=== PATIENT | female | born 1965 | race Hispanic/Latino ===

== ENCOUNTER 2018-06-06 08:10 | Inpatient (IN) | payer BC ==
--- NOTE | 2018-06-06 08:19 | ED PDOC ---
Arrival/HPI - General Chief Complaint: Shortness Of Breath Time Seen by Provider: 06/06/18 08:10 Historian: Patient - History of Present Illness Narrative History of Present Illness (Text): 06/06/18 08:14 Yokasta Ibarra is a 52 year old female, whose past medical history includes COPD, emphysema, asthma, and osteoporosis, who presents to the Emergency department brought in by EMS complaining of shortness of breath. Patient reports she has been experiencing progressively worsening shortness of breath over the past 3 days. Patient reports associated productive cough with yellow-greenish sputum. Patient received 1 nebulizer treatment and Solu-medrol en route to the hospital. Patient denies any fever, chills, chest pain, nausea, vomiting, diarrhea, urinary symptoms, back pain, neck pain, headache, dizziness, or any other complaints. PMD: Dr. Saenz Time/Duration: < week (3) Symptom Onset: Gradual Symptom Course: Unchanged Activities at Onset: Light Context: Home Past Medical History - Provider Review Nursing Documentation Reviewed: Yes - Infectious Disease Hx of Infectious Diseases: None - Tetanus Immunization Tetanus Immunization: Unknown - Past Medical History Past Medical History: No Previous - Pulmonary Hx Asthma: Yes Hx Chronic Obstructive Pulmonary Disease (COPD): Yes - Endocrine/Metabolic Hx Hypothyroidism: Yes - Psychiatric Hx Depression: No Hx Emotional Abuse: No Hx Physical Abuse: No Hx Substance Use: No - Past Surgical History Past Surgical History: No Previous - Suicidal Assessment Feels Threatened In Home Enviroment: No Family/Social History - Physician Review Nursing Documentation Reviewed: Yes Family/Social History: Unknown Family HX Smoking Status: Former Smoker Hx Alcohol Use: No Hx Substance Use: No Hx Substance Use Treatment: No Allergies/Home Meds Allergies/Adverse Reactions: Allergies No Known Allergies Allergy (Verified 06/06/18 08:12) Home Medications: Home Meds Medication Instructions Recorded Confirmed Ibandronate Sodium [Boniva] 150 mg PO MON 06/06/18 06/06/18 RX: Albuterol HFA [Ventolin HFA 90 2 puff NEB Q4 PRN 06/06/18 06/06/18 mcg/actuation (8 g)] RX: Levothyroxine [Synthroid] 50 mcg PO DAILY 06/06/18 06/06/18 Tiotropium [Spiriva] 1 cap NEB DAILY 06/06/18 06/06/18 Review of Systems - Physician Review All systems were reviewed & negative as marked: Yes - Review of Systems Constitutional: Normal. absent: Fevers Eyes: Normal ENT: Normal Respiratory: SOB, Cough, Sputum Gastrointestinal: Normal. absent: Abdominal Pain, Diarrhea, Nausea, Vomiting Genitourinary Female: Normal. absent: Dysuria, Frequency, Hematuria, Urine Output Changes Musculoskeletal: Normal. absent: Back Pain, Neck Pain Skin: Normal. absent: Rash Neurological: Normal. absent: Headache, Dizziness Endocrine: Normal Hemo/Lymphatic: Normal Psychiatric: Normal Physical Exam Vital Signs Reviewed: Yes Temperature: Afebrile Blood Pressure: Normal Pulse: Regular Respiratory Rate: Normal Appearance: Positive for: Well-Appearing, Non-Toxic, Comfortable Pain Distress: None Mental Status: Positive for: Alert and Oriented X 3 - Systems Exam Head: Present: Atraumatic, Normocephalic Pupils: Present: PERRL Extroacular Muscles: Present: EOMI Conjunctiva: Present: Normal Mouth: Present: Moist Mucous Membranes Neck: Present: Normal Range of Motion Respiratory/Chest: Present: Wheezes (Diffuse wheezing), Rhonchi. No: Respira tory Distress, Accessory Muscle Use Cardiovascular: Present: Regular Rate and Rhythm, Normal S1, S2. No: Murmurs Abdomen: No: Tenderness, Distention, Peritoneal Signs Back: Present: Normal Inspection Upper Extremity: Present: Normal Inspection. No: Cyanosis, Edema Lower Extremity: Present: Normal Inspection. No: Edema Neurological: Present: GCS=15, CN II-XII Intact, Speech Normal Skin: Present: Warm, Dry, Normal Color. No: Rashes Psychiatric: Present: Alert, Oriented x 3, Normal Insight, Normal Concentration Medical Decision Making ED Course and Treatment: 06/06/18 08:14 Impression: 52 year old female complaining of shortness of breath and productive cough x3 days. Plan: -- EKG -- Chest X-ray -- Labs, cardiac enzymes, BNP, VBG -- Urinalysis -- Solu-medrol -- Duoneb -- Reassess and disposition Progress Notes: Reviewed EKG, sinus tachycardia at 126 bpm[address] Non-specific ST/T wave changes. No prior EKG for comparison. 06/06/18 09:27 Chest X-ray reviewed, shows no acute processes. 06/06/18 09:[address] Hawthorne, hospitalist, who is aware and agrees with plan. Accepts pt in to hospitalist service. Pt admitted to Telemetry for COPD. 06/06/18 09:34 Case discussed with manager medical personal security specialist, who is aware and agrees with plan. 06/06/18 10:40 peresistent wheezing, additioanl nebs dosed. accpeted hospitals[facility]. - Lab Interpretations I have reviewed the lab results: Yes - RAD Interpretation Magnetic Locater: ED Physician - EKG Interpretation Interpreted by ED Physician: Yes Type: 12 lead EKG Comparison: No previous EKG avail. - Scribe Statement The provider has reviewed the documentation as recorded by the Radhika Flores Provider Scribe Attestation: All medical record entries made by the Scribe were at my direction and personally dictated by me. I have reviewed the chart and agree that the record accurately reflects my personal performance of the history, physical exam, medical decision making, and the department course for this patient. I have also personally directed, reviewed, and agree with the discharge instructions and disposition. Disposition/Present on Arrival - Present on Arrival Any Indicators Present on Arrival: No History of DVT/PE: No History of Uncontrolled Diabetes: No Urinary Catheter: No History of Decub. Ulcer: No History Surgical Site Infection Following: None - Disposition Have Diagnosis and Disposition been Completed?: Yes Diagnosis: COPD (chronic obstructive pulmonary disease) Disposition: HOSPITALIZED Disposition Time: 09:50 Condition: FAIR
[2018-06-06] MEDS: Albuterol-Ipratrop 3 mg / 0.5 (3 ml) UD IH SCH ×3 (08:30→08:46)
[2018-06-06 08:52] LABS: VENOUS BLOOD GAS BASE EXCESS -1.7 mmol/L (0.0-2.0); VENOUS BLOOD GAS PO2 74 mm/Hg (30-55); VENOUS BLOOD PH 7.27 (7.32-7.43)
[2018-06-06 08:54] LABS: BASO # 0.04 K/mm3 (0.0-2.0); BASO % 0.9 % (0.0-3.0); EOS # 0.4 (0.0-0.7); EOS % 10.1 % (1.5-5.0); GRAN # 2.03 (1.4-6.5); GRAN % 47.7 % (50.0-68.0); HEMOGLOBIN 13.7 g/dL (12.0-16.0); LYMPH # 1.5 (1.2-3.4); LYMPH % 34.7 % (22.0-35.0); MEAN CELL VOLUME 85.2 fl (80.0-105.0); MEAN CORPUSCULAR HEMOGLOBIN 27.8 pg (25.0-35.0); MEAN CORPUSCULAR HGB CONC 32.6 g/dl (31.0-37.0); MEAN PLATELET VOLUME 9.3 fl (7.0-11.0); MONO # 0.3 (0.1-0.6); MONO % 6.6 % (1.0-6.0); RBC 4.93 10^6/uL (3.5-6.1); WHITE BLOOD COUNT 4.3 10^3/uL (4.5-11.0)
[2018-06-06 09:00] LABS: INR 0.97; PARTIAL THROMBOPLASTIN TIME 33.6 Seconds (25.1-36.5); PROTHROMBIN TIME 11.1 SECONDS (9.4-12.5)
[2018-06-06 09:04] LABS: ALB/GLOB RATIO 1.4 (1.1-1.8); ALT/SGPT 30 U/L (7-56); AST/SGOT 40 U/L (14-36); BLOOD UREA NITROGEN 6 mg/dL (7-21); CALCIUM 8.9 mg/dL (8.4-10.5); GFR NON-AFRICAN AMERICAN > 60
[2018-06-06 09:16] LABS: B-TYPE NATRIURETIC PEPTIDE 47.8 pg/mL (0-450); TROPONIN I 0.03 ng/mL
[2018-06-06] MEDS ORDERED: Albuterol-Ipratrop 3 mg / 0.5 (3 ml) UD IH STA (09:29)
[2018-06-06 09:42] LABS: URINE BILIRUBIN NEGATIVE (NEGATIVE); URINE BLOOD NEGATIVE (NEGATIVE); URINE GLUCOSE (UA) NEGATIVE (NEGATIVE); URINE LEUKOCYTE ESTERASE NEGATIVE Leu/uL (NEGATIVE); URINE PROTEIN 100 mg/dL (<30 mg/dL); URINE UROBILINOGEN 0.2 E.U./dL (<1 E.U./dL)
[2018-06-06 09:44] LABS: URINE COLOR YELLOW (YELLOW)
[2018-06-06 09:46] LABS: HCG,QUALITATIVE URINE NEGATIVE (NEGATIVE)
[2018-06-06 09:47] LABS: URINE APPEARANCE SLIGHT-CLOUDY (CLEAR)
[2018-06-06] MEDS ORDERED: Albuterol-Ipratrop 3 mg / 0.5 (3 ml) UD IH PRN (10:00)
--- NOTE | 2018-06-06 10:03 | RAD ---
Date of service: 06/06/2018 HISTORY: sob COMPARISON: No prior. FINDINGS: LUNGS: No active pulmonary disease. PLEURA: No significant pleural effusion identified, no pneumothorax apparent. CARDIOVASCULAR: No aortic atherosclerotic calcification present. Normal cardiac size. No pulmonary vascular congestion. OSSEOUS STRUCTURES: No significant abnormalities. VISUALIZED UPPER ABDOMEN: Normal. OTHER FINDINGS: None. IMPRESSION: No active disease.
[2018-06-06] MEDS ORDERED: Levalbuterol 0.63 MG/3 ML Inhal Soln UD IH PRN (10:32)
[2018-06-06] MEDS ORDERED: guaiFENesin 100 mg/5 ml Syrup UD PO PRN (10:43)
[2018-06-06] MEDS ORDERED: Menthol/Phenol (Cepastat) Lozenge MT PRN (10:43)
[2018-06-06] MEDS: Levothyroxine 50 MCG TAB PO SCH (11:14)
[2018-06-06] MEDS: Azithromycin 500MG/NS 250ml 500 MG/250 ML BAG IVPB SCH (11:14)
[2018-06-06 11:16] VITALS: BMI 32.0
[2018-06-06] MEDS: Levalbuterol 1.25 MG/3 ML Inhal Soln UD IH SCH ×2 (13:36→19:40)
[2018-06-06] MEDS ORDERED: Albuterol-Ipratrop 3 mg / 0.5 (3 ml) UD IH SCH (14:00)
--- NOTE | 2018-06-06 14:17 | CP.PCM.HP ---
<NelsonebonyyuryIke arcos - Last Filed: 06/06/18 14:11> History of Present Illness - History of Present Illness History of Present Illness: 52 year old female with past medical history of COPD, Emphysema, Osteoporosis, and Hypothyroidism presents to the hospital for 2 days of shortness of breath. Patient states she was switching from her Spiriva inhaler to Trelegy days ago, but did not want to start the other inhaler right away. During this time, patient developed worsening dyspnea, along with productive cough. Patient admits to minimal mucous production, although she feels it in her lungs. Patient used proair inhaler for her for her symptoms but it did not help. Patient states she is compliant with medications. Patient last saw her PMD and die sinking machine operator 2 months ago. Denies chest pain, nausea, vomiting, diarrhea, fever, chills, dysuria, numbness, tingling. Medical Hx: COPD, Emphysema, Osteoporosis, and Hypothyroidism Surgical Hx: Denies Family Hx: Denies Social Hx: Former smoker, quit 2 years ago, 40 pack years. Denies alcohol or illicit drug use Allergies: NKDA Medications: Spiriva, Trelegy, Proair, Levothyroxine PMD: Dr. Montiel Puljesse: Dr. Sheppard Present on Admission - Present on Admission Any Indicators Present on Admission: No Review of Systems - Review of Systems Review of Systems: 12 point ROS as per HPI, otherwise negative Past Patient History - Infectious Disease Hx of Infectious Diseases: None - Tetanus Immunizations Tetanus Immunization: Unknown - Past Social History Smoking Status: Former Smoker - CARDIAC Hx Cardiac Disorders: No - PULMONARY Hx Respiratory Disorders: Yes Hx Asthma: Yes Hx Chronic Obstructive Pulmonary Disease (COPD): Yes Hx Emphysema: Yes - NEUROLOGICAL Hx Neurological Disorder: No - HEENT Hx HEENT Problems: No - RENAL Hx Chronic Kidney Disease: No - ENDOCRINE/METABOLIC Hx Endocrine Disorders: Yes Hx Hypothyroidism: Yes - HEMATOLOGICAL/ONCOLOGICAL Hx Blood Disorders: No - INTEGUMENTARY Hx Dermatological Problems: No - MUSCULOSKELETAL/RHEUMATOLOGICAL Hx Musculoskeletal Disorders: No Hx Falls: No - GASTROINTESTINAL Hx Gastrointestinal Disorders: No - GENITOURINARY/GYNECOLOGICAL Hx Genitourinary Disorders: No - PSYCHIATRIC Hx Psychophysiologic Disorder: No - SURGICAL HISTORY Hx Surgeries: No Meds Allergies/Adverse Reactions: Allergies Allergy/AdvReac Type Severity Reaction Status Date / Time No Known Allergies Allergy Verified 06/06/18 08:12 Physical Exam - Constitutional Appears: Non-toxic, No Acute Distress - Head Exam Head Exam: ATRAUMATIC, NORMAL INSPECTION, NORMOCEPHALIC - Eye Exam Eye Exam: EOMI - ENT Exam ENT Exam: Mucous Membranes Moist - Neck Exam Neck exam: Positive for: Normal Inspection - Respiratory Exam Respiratory Exam: Wheezes (b/l), NORMAL BREATHING PATTERN. absent: Rales, Rhonchi - Cardiovascular Exam Cardiovascular Exam: Tachycardia, +S1, +S2 - GI/Abdominal Exam GI & Abdominal Exam: Normal Bowel Sounds, Soft. absent: Tenderness - Extremities Exam Extremities exam: Positive for: normal inspection. Negative for: calf tenderness, pedal edema - Neurological Exam Neurological exam: Alert, CN II-XII Intact, Oriented x3 - Psychiatric Exam Psychiatric exam: Normal Affect, Normal Mood - Skin Skin Exam: Intact, Normal Color, Warm Results - Vital Signs Recent Vital Signs: Last Vital Signs Temp 98 F 06/06/18 10:52 Pulse 125 H 06/06/18 10:52 Resp 18 06/06/18 10:57 BP 121/79 06/06/18 10:52 Pulse Ox 94 L 06/06/18 10:52 - Labs Result Diagrams: 06/06/18 08:33 06/06/18 08:33 Labs: Laboratory Results - last 24 hr 06/06/18 06/06/18 06/06/18 08:33 08:33 08:33 WBC 4.3 L RBC 4.93 Hgb 13.7 Hct 42.0 MCV 85.2 MCH 27.8 MCHC 32.6 RDW 14.0 Plt Count 188 MPV 9.3 Gran % 47.7 L Lymph % (Auto) 34.7 [place] % (Auto) 6.6 H Eos % (Auto) 10.1 H Baso % (Auto) 0.9 Gran # 2.03 Lymph # (Auto) 1.5 [place] # (Auto) 0.3 Eos # (Auto) 0.4 Baso # (Auto) 0.04 PT INR APTT pO2 74 H VBG pH 7.27 L VBG pCO2 57.0 VBG HCO3 26.2 VBG Total CO2 27.9 VBG O2 Sat (Calc) 96.0 H VBG Base Excess -1.7 L VBG Potassium 4.3 Sodium 140.0 140 Chloride 105.0 109 H Glucose 121 H Lactate 1.2 FiO2 21.0 Potassium 4.4 Carbon Dioxide 27 Anion Gap 9 L BUN 6 L Creatinine 0.8 Est GFR ( Amer) > 60 Est GFR (Non-Af Amer) > 60 Random Glucose 122 H Calcium 8.9 Magnesium 1.9 Total Bilirubin 0.4 AST 40 H ALT 30 Alkaline Phosphatase 85 Lactate Dehydrogenase 500 Total Creatine Kinase 86 Troponin I 0.03 NT-Pro-B Natriuret Pep 47.8 Total Protein 6.9 Albumin 4.0 Globulin 2.9 Albumin/Globulin Ratio 1.4 Venous Blood Potassium 4.3 Urine Color Urine Appearance Urine pH Ur Specific [place] Urine Protein Urine Glucose (UA) Urine Ketones Urine Blood Urine Nitrate Urine Bilirubin Urine Urobilinogen Ur Leukocyte Esterase Urine RBC Urine WBC Ur Epithelial Cells Urine HCG, Qual 06/06/18 06/06/18 08:45 09:23 WBC RBC Hgb Hct MCV MCH MCHC RDW Plt Count MPV Gran % Lymph % (Auto) [place] % (Auto) Eos % (Auto) Baso % (Auto) Gran # Lymph # (Auto) [place] # (Auto) Eos # (Auto) Baso # (Auto) PT 11.1 INR 0.97 APTT 33.6 pO2 VBG pH VBG pCO2 VBG HCO3 VBG Total CO2 VBG O2 Sat (Calc) VBG Base Excess VBG Potassium Sodium Chloride Glucose Lactate FiO2 Potassium Carbon Dioxide Anion Gap BUN Creatinine Est GFR ( Amer) Est GFR (Non-Af Amer) Random Glucose Calcium Magnesium Total Bilirubin AST ALT Alkaline Phosphatase Lactate Dehydrogenase Total Creatine Kinase Troponin I NT-Pro-B Natriuret Pep Total Protein Albumin Globulin Albumin/Globulin Ratio Venous Blood Potassium Urine Color Yellow Urine Appearance Slight-cloudy Urine pH 6.0 Ur Specific [place] >= 1.030 Urine Protein 100 H Urine Glucose (UA) Negative Urine Ketones Negative Urine Blood Negative Urine Nitrate Negative Urine Bilirubin Negative Urine Urobilinogen 0.2 Ur Leukocyte Esterase Negative Urine RBC TEST NOT PERFORMED Urine WBC 2 - 5 Ur Epithelial Cells 6 - 8 H Urine HCG, Qual Negative Assessment & Plan - Assessment and Plan (Free Text) Plan: 52 year old female with past medical history of COPD, Emphysema, Osteoporosis, and Hypothyroidism presents with COPD exacerbation. 1. COPD exacerbation Xopenex breathing treatments Solumedrol 40 q12 Pulmicort/Brovana Azithromycin Robitussin Cepacol Physical therapy consulted Pulm consulted, Dr. Sheppard 2. Hypothyroidism Resume home Levothyroxine 3. Prophylaxis Protonix SCDs Anali, PGY-3 <MarineMatthewsophia - Last Filed: 06/07/18 12:00> Results - Vital Signs Recent Vital Signs: Last Vital Signs Temp 98 F 06/07/18 08:40 Pulse 112 H 06/07/18 10:00 Resp 19 06/07/18 08:40 BP 112/74 06/07/18 08:40 Pulse Ox 96 06/07/18 08:40 - Labs Result Diagrams: 06/07/18 05:30 06/07/18 05:30 Labs: Laboratory Results - last 24 hr 06/07/18 06/07/18 05:30 05:30 WBC 6.3 D RBC 4.96 Hgb 13.6 Hct 41.8 MCV 84.3 MCH 27.4 MCHC 32.5 RDW 14.1 Plt Count 236 MPV 9.7 Sodium 138 Potassium 4.6 Chloride 108 H Carbon Dioxide 24 Anion Gap 11 BUN 9 Creatinine 0.7 Est GFR ( Amer) > 60 Est GFR (Non-Af Amer) > 60 Random Glucose 149 H Calcium 9.2 Total Bilirubin 0.5 AST 55 H D ALT 26 Alkaline Phosphatase 73 Total Protein 7.4 Albumin 4.0 Globulin 3.3 Albumin/Globulin Ratio 1.2 Attending/Attestation - Attestation I have personally seen and examined this patient.: Yes I have fully participated in the care of the patient.: Yes I have reviewed all pertinent clinical information: Yes Notes (Text): 06/07/18 11:53 attending note; Patient seen and examined with resident. Patient is alert and awake. Complaining of cough and shortness of breath. Denies any fevers, chills. complaining of brownish sputum production. Complaining of exertional dyspnea and wheezing on ambulation. patient has been recently stopped taking Spiriva. Supposed to start Trelegy as an outpatient. Acute COPD exacerbation; patient got multiple treatments in the ER. Currently tachycardic with wheezing. Continue oxygen, Xopenex and IV Solu-Medrol. Bronchitis; started on Zithromax. chest x-rays negative for active disease. hypothyroidism; Continue Synthroid. GI prophylaxis with Protonix. SCDs for DVT prophylaxis. the patient will follow-up with pulmonary pulmonary evaluation requested. upon discharge the patient will follow-up with PMD Dr. montiel. the patient will follow-up with pulmonary Dr. Sheppard. The diagnosis, treatment options and follow-up plan discussed with patient in detail. 06/07/18 11:59
[2018-06-06] MEDS: MethylPREDNISolone 40 mg Vial IVP SCH ×2 (17:05→21:24)
--- NOTE | 2018-06-06 17:35 | CARD ---
APPROVED REPORT Date of service: 06/06/2018 EKG Measurement Heart [id number] <Conclusion> Sinus tachycardia Nonspecific ST abnormality Abnormal ECG
--- NOTE | 2018-06-06 19:10 | CON ---
DATE: 06/06/2018 PULMONARY CONSULTATION HISTORY OF PRESENT ILLNESS: The patient was seen and examined at bedside. She is 52 years old female with known history of severe COPD, emphysema, past history of bronchial asthma, presented to emergency room with 2 days complaints of increasing shortness of breath. The patient was noncompliant with her prescribed medications. She did not take Spiriva and she did not take nebulizer. She also complaints of cough associated with yellow green sputum. She denied fever and denied cold symptoms. PAST MEDICAL HISTORY: Chronic obstructive pulmonary disease, hypothyroidism. ALLERGIES: NO KNOWN ALLERGIES. FAMILY HISTORY: HTN, CAD SOCIAL HISTORY: She is a past smoker, nondrinker and never used illicit drugs. REVIEW OF SYSTEMS: A review of systems was conducted by reviewing all sources. CONSTITUTIONAL: Absent fevers. EAR, NOSE AND THROAT: No nasal congestion. PULMONARY: See history of present illness. CARDIOVASCULAR: No chest pain. No palpitations. GASTROINTESTINAL: No nausea, vomiting, or diarrhea. The rest of the systems were reviewed and found to be negative. PHYSICAL EXAMINATION: GENERAL: She is awake, alert, in no acute distress. VITAL SIGNS: Temperature 98.8, respirations 20, blood pressure 110/70, and pulse of 84. HEENT: Head is normocephalic and atraumatic. NECK: Supple with no jugular vein distention. CARDIOVASCULAR: S1 and S2. No S3. Regular. PULMONARY: Diminished breath sounds throughout the lungs, wheeze, rhonchi and diffuse end expiratory wheezes. GASTROINTESTINAL: Soft and nontender. No organomegaly. EXTREMITIES: No pedal edema. SKIN: Warm and dry. No cyanosis. NEUROLOGIC: No focal deficits. LABORATORY DATA: I reviewed her chest x-ray which shows no acute infiltrate. I also reviewed her laboratory data, which is relatively unremarkable. ASSESSMENT: 1. Exacerbation of severe chronic obstructive pulmonary disease. 2. Hypoxia. 3. Acute bronchospasm. PLAN: We will continue with administration of Brovana and budesonide. She is getting Robitussin as an expectorant. She is on Solu-Medrol 40 mg every 12 hours. She is on azithromycin. We will continue all about intervention and reevaluate in 24 hours. Joe Jimenez MD MTDD
[2018-06-06] MEDS: Arformoterol 15 mcg/2 ml Inh Sol IH SCH (19:39)
[2018-06-06] MEDS: Budesonide 0.25 mg/2 ml Inhal Susp UD IH SCH (19:40)
[2018-06-07] MEDS: Pantoprazole 40 mg EC Tab PO SCH (05:05)
[2018-06-07 06:56] LABS: HEMOGLOBIN 13.6 g/dL (12.0-16.0); MEAN CELL VOLUME 84.3 fl (80.0-105.0); MEAN CORPUSCULAR HEMOGLOBIN 27.4 pg (25.0-35.0); MEAN CORPUSCULAR HGB CONC 32.5 g/dl (31.0-37.0); MEAN PLATELET VOLUME 9.7 fl (7.0-11.0); RBC 4.96 10^6/uL (3.5-6.1); RED CELL DISTRIBUTION WIDTH 14.1 % (11.5-14.5); WHITE BLOOD COUNT 6.3 10^3/uL (4.5-11.0)
[2018-06-07 07:30] LABS: ALB/GLOB RATIO 1.2 (1.1-1.8); ALT/SGPT 26 U/L (7-56); AST/SGOT 55 U/L (14-36); BLOOD UREA NITROGEN 9 mg/dL (7-21); CALCIUM 9.2 mg/dL (8.4-10.5); GFR NON-AFRICAN AMERICAN > 60
[2018-06-07] MEDS: Arformoterol 15 mcg/2 ml Inh Sol IH SCH ×2 (07:39→20:26)
[2018-06-07] MEDS: Levalbuterol 1.25 MG/3 ML Inhal Soln UD IH SCH ×3 (07:39→20:26)
[2018-06-07] MEDS: Budesonide 0.25 mg/2 ml Inhal Susp UD IH SCH ×2 (07:39→20:26)
[2018-06-07] MEDS: MethylPREDNISolone 40 mg Vial IVP SCH ×2 (09:04→22:04)
[2018-06-07] MEDS: Levothyroxine 50 MCG TAB PO SCH (09:05)
[2018-06-07] MEDS: Azithromycin 500MG/NS 250ml 500 MG/250 ML BAG IVPB SCH (09:06)
--- NOTE | 2018-06-07 12:55 | PN ---
DATE: 06/07/2018 PULMONARY PROGRESS NOTE SUBJECTIVE: The patient was seen and examined at the bedside. She states she feels better, less shortness of breath, and less cough. PHYSICAL EXAMINATION: VITAL SIGNS: Temperature is 98, pulse 94, respirations 20, pulse oxymetry is 96% on room air, and blood pressure 112/74. HEENT: Head is normocephalic and atraumatic. NECK: Supple with no jugular vein distentions. CARDIOVASCULAR: S1 and S2. No S3. Regular. PULMONARY: Diminished breath sounds bilaterally with scattered rhonchi and few expiratory wheezes. GASTROINTESTINAL: Soft and nontender. No organomegaly. EXTREMITIES: No pedal edema. No cyanosis. NEUROLOGICAL: No focal deficits. SKIN: Dry; intact. ASSESSMENT: Exacerbation of severe chronic obstructive pulmonary disease. PLAN: I have reviewed the patient's blood work, her chemistries are within normal range. Her WBC is 6.3 and hemoglobin of 13.6 today. Her pulmonary status have improved dramatically. She is still wheezing and short of breath on minimal exertion, but making very good progress. We will continue with current administration of nebulizer, medications, as well as steroids. If progress continues, she may be discharged tomorrow. Joe Jimenez MD MTDIvonne
--- NOTE | 2018-06-07 13:23 | CP.PCM.PN ---
<Miki Leal - Last Filed: 06/07/18 13:20> Subjective - Date & Time of Evaluation Date of Evaluation: 06/07/18 Time of Evaluation: 08:30 - Subjective Subjective: Medicine Progress Note for Hospitalist Service, Dr. Marine Leal, DO PGY-1 Pt seen and examined at bedside this am. Denies any acute complaints, sitting up in bed, in no acute distress. No acute events reported overnight by staff. Pt states her breathing is improving, states she was able to ambulate around room today. Denies headache, fever, chills, chest pain, sob, n/v/d/c, abd pain, urinary complaints, or other symptoms. Objective - Vital Signs/Intake and Output Vital Signs (last 24 hours): Temp Pulse Resp BP Pulse Ox 98 F 112 H 19 112/74 96 06/07/18 08:40 06/07/18 10:00 06/07/18 08:40 06/07/18 08:40 06/07/18 08:40 Intake and Output: 06/07/18 06/07/18 06:59 18:59 Intake Total 480 Balance 480 - Medications Medications: Current Medications Acetaminophen (Tylenol 325mg Tab) 650 mg PO Q4H PRN PRN Reason: Fever >100.4 F Arformoterol Tartrate (Brovana) 15 mcg IH [id number] [facility] Last Admin: 06/07/18 07:39 Dose: 15 mcg Budesonide (Pulmicort Respules) 0.25 mg IH [id number] [facility] Last Admin: 06/07/18 07:39 Dose: 0.25 mg Guaifenesin (Robitussin) 100 mg PO Q4H PRN PRN Reason: Cough Azithromycin (Zithromax 500mg In Ns) 500 mg in 250 mls @ 167 mls/hr IVPB DAILY [facility]; Protocol Last Admin: 06/07/18 09:06 Dose: 167 mls/hr Levalbuterol HCl (Xopenex) 1.25 mg IH TIDRESP [facility] Last Admin: 06/07/18 07:39 Dose: 1.25 mg Levalbuterol HCl (Xopenex) 0.63 mg IH [id number] PRN PRN Reason: Shortness of Breath Levothyroxine Sodium (Synthroid) 50 mcg PO DAILY [facility] Last Admin: 06/07/18 09:05 Dose: 50 mcg Methylprednisolone (Solu-Medrol) 40 mg IVP Q12 [facility] Last Admin: 06/07/18 09:04 Dose: 40 mg Ondansetron HCl (Zofran Inj) 4 mg IVP Q4H PRN PRN Reason: Nausea/Vomiting Pantoprazole Sodium (Protonix Ec Tab) 40 mg PO 0600 [facility] Last Admin: 06/07/18 05:05 Dose: 40 mg Throat Lozenges (Cepastat) 1 darío MT Q6H PRN PRN Reason: Sore Throat - Labs Labs: 06/07/18 05:30 06/07/18 05:30 PT 11.1 SECONDS (9.4-12.5) 06/06/18 08:45 INR 0.97 06/06/18 08:45 APTT 33.6 Seconds (25.1-36.5) 06/06/18 08:45 - Constitutional Appears: Non-toxic, No Acute Distress - Head Exam Head Exam: ATRAUMATIC, NORMOCEPHALIC - Eye Exam Eye Exam: EOMI, Normal appearance, PERRL - ENT Exam ENT Exam: Mucous Membranes Moist - Respiratory Exam Respiratory Exam: Wheezes, NORMAL BREATHING PATTERN. absent: Rales, Rhonchi, Respiratory Distress - Cardiovascular Exam Cardiovascular Exam: REGULAR RHYTHM, +S1, +S2. absent: Gallop, Rubs, Murmur - GI/Abdominal Exam GI & Abdominal Exam: Soft, Normal Bowel Sounds. absent: Distended, Guarding, Tenderness, Organomegaly - Extremities Exam Extremities Exam: Full ROM, Normal Capillary Refill, Normal Inspection. absent: Calf Tenderness, Pedal Edema - Back Exam Back Exam: Full ROM, NORMAL INSPECTION. absent: paraspinal tenderness - Neurological Exam Neurological Exam: Alert, Awake, CN II-XII Intact, Normal Gait, Oriented x3 - Psychiatric Exam Psychiatric exam: Normal Affect, Normal Mood - Skin Skin Exam: Dry, Intact, Normal Color, Warm Assessment and Plan - Assessment and Plan (Free Text) Assessment: 52 year old female with past medical history of COPD, Emphysema, Osteoporosis, and Hypothyroidism admitted for COPD exacerbation. Plan: COPD exacerbation CXR 06/06: no active disease EKG 06/06: sinus tachy at 126 bpm Xopenex breathing treatments Solumedrol 40 q12 Pulmicort/Brovana Azithromycin day #2 Robitussin Cepacol Physical therapy consulted, pt desaturated to 90% when ambulating with PT today on 2L 02. Pulm consulted, Dr. Sheppard, recs appreciated Hypothyroidism C/w home Levothyroxine Prophylaxis Protonix SCDs Dispo: D/c planning for tomorrow pending clinical improvement of symptoms. Pt seen, examined with, and plan discussed with Dr. Hawthorne, attending physician. Miki Leal DO PGY-1, Dope Pourer Pager #[phone] <Ce Hawthorne - Last Filed: 06/07/18 15:56> Objective - Vital Signs/Intake and Output Vital Signs (last 24 hours): Temp Pulse Resp BP Pulse Ox 98 F 110 H 19 112/74 96 06/07/18 08:40 06/07/18 14:00 06/07/18 08:40 06/07/18 08:40 06/07/18 08:40 Intake and Output: 06/07/18 06/07/18 06:59 18:59 Intake Total 480 Balance 480 - Medications Medications: Current Medications Acetaminophen (Tylenol 325mg Tab) 650 mg PO Q4H PRN PRN Reason: Fever >100.4 F Arformoterol Tartrate (Brovana) 15 mcg IH [id number] [facility] Last Admin: 06/07/18 07:39 Dose: 15 mcg Budesonide (Pulmicort Respules) 0.25 mg IH [id number] [facility] Last Admin: 06/07/18 07:39 Dose: 0.25 mg Guaifenesin (Robitussin) 100 mg PO Q4H PRN PRN Reason: Cough Azithromycin (Zithromax 500mg In Ns) 500 mg in 250 mls @ 167 mls/hr IVPB DAILY [facility]; Protocol Last Admin: 06/07/18 09:06 Dose: 167 mls/hr Levalbuterol HCl (Xopenex) 1.25 mg IH TIDRESP [facility] Last Admin: 06/07/18 13:51 Dose: 1.25 mg Levalbuterol HCl (Xopenex) 0.63 mg IH [id number] PRN PRN Reason: Shortness of Breath Levothyroxine Sodium (Synthroid) 50 mcg PO DAILY [facility] Last Admin: 06/07/18 09:05 Dose: 50 mcg Methylprednisolone (Solu-Medrol) 40 mg IVP Q12 [facility] Last Admin: 06/07/18 09:04 Dose: 40 mg Ondansetron HCl (Zofran Inj) 4 mg IVP Q4H PRN PRN Reason: Nausea/Vomiting Pantoprazole Sodium (Protonix Ec Tab) 40 mg PO 0600 [facility] Last Admin: 06/07/18 05:05 Dose: 40 mg Throat Lozenges (Cepastat) 1 darío MT Q6H PRN PRN Reason: Sore Throat - Labs Labs: 06/07/18 05:30 06/07/18 05:30 PT 11.1 SECONDS (9.4-12.5) 06/06/18 08:45 INR 0.97 06/06/18 08:45 APTT 33.6 Seconds (25.1-36.5) 06/06/18 08:45 Attending/Attestation - Attestation I have personally seen and examined this patient.: Yes I have fully participated in the care of the patient.: Yes I have reviewed all pertinent clinical information, including history, physical exam and plan: Yes Notes (Text): 06/07/18 15:49 attending note; Patient seen and examined with resident. Patient is alert and awake. Complaining of cough and shortness of breath is improving. Denies any fevers, chills. Acute COPD exacerbation; continue on oxygen nasal cannula. tachycardia is improving. Continue oxygen, Xopenex and IV Solu-Medrol. Bronchitis; started on Zithromax. chest x-rays negative for active disease. pulmonary evaluation appreciated. We will get physical therapy to assess the need for home oxygen. hypothyroidism; Continue Synthroid. GI prophylaxis with Protonix. SCDs for DVT prophylaxis. possible discharge home tomorrow if clinically improves. upon discharge the patient will follow-up with PMD Dr. montiel. the patient will follow-up with pulmonary Dr. Sheppard. The diagnosis, treatment options and follow-up plan discussed with patient in detail.
[2018-06-07] MEDS ORDERED: Levothyroxine 50 MCG TAB PO SCH (20:47)
[2018-06-08] MEDS: Pantoprazole 40 mg EC Tab PO SCH (05:03)
[2018-06-08 07:03] LABS: MEAN CELL VOLUME 84.6 fl (80.0-105.0); MEAN CORPUSCULAR HGB CONC 31.9 g/dl (31.0-37.0); MEAN PLATELET VOLUME 9.7 fl (7.0-11.0); RBC 4.82 10^6/uL (3.5-6.1); RED CELL DISTRIBUTION WIDTH 14.1 % (11.5-14.5); WHITE BLOOD COUNT 6.6 10^3/uL (4.5-11.0)
[2018-06-08 07:26] LABS: ALB/GLOB RATIO 1.4 (1.1-1.8); ALBUMIN 3.8 g/dL (3.0-4.8); ALT/SGPT 23 U/L (7-56); AST/SGOT 51 U/L (14-36); BLOOD UREA NITROGEN 14 mg/dL (7-21); CALCIUM 9.1 mg/dL (8.4-10.5); GFR NON-AFRICAN AMERICAN > 60
[2018-06-08] MEDS: Arformoterol 15 mcg/2 ml Inh Sol IH SCH (08:19)
[2018-06-08] MEDS: Levalbuterol 1.25 MG/3 ML Inhal Soln UD IH SCH ×2 (08:20→14:00)
[2018-06-08] MEDS: Budesonide 0.25 mg/2 ml Inhal Susp UD IH SCH (08:20)
[2018-06-08 08:25] VITALS: RESP 20; TEMP 97.8
[2018-06-08 09:03] LABS: FREE T4 1.46 ng/dL (0.78-2.19); T4 9.2 ug/dL (5.5-11.0)
[2018-06-08 09:16] LABS: T3 0.92 ng/mL (0.97-1.69)
[2018-06-08] MEDS: Azithromycin 500MG/NS 250ml 500 MG/250 ML BAG IVPB SCH (09:59)
[2018-06-08] MEDS ORDERED: MethylPREDNISolone 40 mg Vial IVP SCH (10:00)
--- NOTE | 2018-06-08 16:06 | CP.PCM.DIS ---
Provider - Provider Date of Admission: 06/06/18 09:30 Attending physician: Ce Hawthorne MD Primary care physician: Honey Saenz MD Consults: 06/06/18 12:10 Pulmonology Consult Routine Comment: Consulting Provider: Leonard Sheppard Consulting Physician: Leonard Sheppard Reason for Consult: COPD Exacerbation Time Spent in preparation of Discharge (in minutes): 45 Diagnosis - Discharge Diagnosis (1) COPD exacerbation Status: Acute (2) Hypothyroidism Status: Acute (3) Requires continuous at home supplemental oxygen Status: Acute Hospital Course - Lab Results Lab Results: Most Recent Lab Values WBC 6.6 10^3/uL (4.5-11.0) 06/08/18 06:00 RBC 4.82 10^6/uL (3.5-6.1) 06/08/18 06:00 Hgb 13.0 g/dL (12.0-16.0) 06/08/18 06:00 Hct 40.8 % (36.0-48.0) 06/08/18 06:00 MCV 84.6 fl (80.0-105.0) 06/08/18 06:00 MCH 27.0 pg (25.0-35.0) 06/08/18 06:00 MCHC 31.9 g/dl (31.0-37.0) 06/08/18 06:00 RDW 14.1 % (11.5-14.5) 06/08/18 06:00 Plt Count 204 10^3/uL (120.0-450.0) 06/08/18 06:00 MPV 9.7 fl (7.0-11.0) 06/08/18 06:00 Gran % 47.7 % (50.0-68.0) L 06/06/18 08:33 Lymph % (Auto) 34.7 % (22.0-35.0) 06/06/18 08:33 [place] % (Auto) 6.6 % (1.0-6.0) H 06/06/18 08:33 Eos % (Auto) 10.1 % (1.5-5.0) H 06/06/18 08:33 Baso % (Auto) 0.9 % (0.0-3.0) 06/06/18 08:33 Gran # 2.03 (1.4-6.5) 06/06/18 08:33 Lymph # (Auto) 1.5 (1.2-3.4) 06/06/18 08:33 [place] # (Auto) 0.3 (0.1-0.6) 06/06/18 08:33 Eos # (Auto) 0.4 (0.0-0.7) 06/06/18 08:33 Baso # (Auto) 0.04 K/mm3 (0.0-2.0) 06/06/18 08:33 PT 11.1 SECONDS (9.4-12.5) 06/06/18 08:45 INR 0.97 06/06/18 08:45 APTT 33.6 Seconds (25.1-36.5) 06/06/18 08:45 pO2 74 mm/Hg (30-55) H 06/06/18 08:33 VBG pH 7.27 (7.32-7.43) L 06/06/18 08:33 VBG pCO2 57.0 (40-60) 06/06/18 08:33 VBG HCO3 26.2 mmol/l (21-28) 06/06/18 08:33 VBG Total CO2 27.9 mmol.L (22-28) 06/06/18 08:33 VBG O2 Sat (Calc) 96.0 % (40-65) H 06/06/18 08:33 VBG Base Excess -1.7 mmol/L (0.0-2.0) L 06/06/18 08:33 VBG Potassium 4.3 mmol/L (3.6-5.2) 06/06/18 08:33 Sodium 140.0 mmol/L (132-148) 06/06/18 08:33 Chloride 105.0 mmol/L (98-107) 06/06/18 08:33 Glucose 121 mg/dl (65-105) H 06/06/18 08:33 Lactate 1.2 mmol/L (0.7-2.1) 06/06/18 08:33 FiO2 21.0 % 06/06/18 08:33 Sodium 138 mmol/L (132-148) 06/08/18 06:00 Potassium 4.5 mmol/L (3.6-5.0) 06/08/18 06:00 Chloride 106 mmol/L (98-107) 06/08/18 06:00 Carbon Dioxide 27 mmol/L (21-33) 06/08/18 06:00 Anion Gap 10 (10-20) 06/08/18 06:00 BUN 14 mg/dL (7-21) 06/08/18 06:00 Creatinine 0.8 mg/dl (0.7-1.2) 06/08/18 06:00 Est GFR ( Amer) > 60 06/08/18 06:00 Est GFR (Non-Af Amer) > 60 06/08/18 06:00 Random Glucose 139 mg/dL (70-110) H 06/08/18 06:00 Calcium 9.1 mg/dL (8.4-10.5) 06/08/18 06:00 Magnesium 1.9 mg/dL (1.7-2.2) 06/06/18 08:33 Total Bilirubin 0.3 mg/dL (0.2-1.3) 06/08/18 06:00 AST 51 U/L (14-36) H 06/08/18 06:00 ALT 23 U/L (7-56) 06/08/18 06:00 Alkaline Phosphatase 72 U/L (38-126) 06/08/18 06:00 Lactate Dehydrogenase 500 U/L (333-699) 06/06/18 08:33 Total Creatine Kinase 86 U/L (35-230) 06/06/18 08:33 Troponin I 0.03 ng/mL 06/06/18 08:33 NT-Pro-B Natriuret Pep 47.8 pg/mL (0-450) 06/06/18 08:33 Total Protein 6.6 g/dL (5.8-8.3) 06/08/18 06:00 Albumin 3.8 g/dL (3.0-4.8) 06/08/18 06:00 Globulin 2.8 gm/dL 06/08/18 06:00 Albumin/Globulin Ratio 1.4 (1.1-1.8) 06/08/18 06:00 Free T4 1.46 ng/dL (0.78-2.19) 06/08/18 08:24 Thyroxine (T4) 9.2 ug/dL (5.5-11.0) 06/08/18 08:24 Total T3 0.92 ng/mL (0.97-1.69) L 06/08/18 08:24 TSH 3rd Generation 0.02 mIU/mL (0.46-4.68) L 06/08/18 08:24 Venous Blood Potassium 4.3 mmol/L (3.6-5.2) 06/06/18 08:33 Urine Color Yellow (YELLOW) 06/06/18 09:23 Urine Appearance Slight-cloudy (CLEAR) 06/06/18 09:23 Urine pH 6.0 (4.7-8.0) 06/06/18 09:23 Ur Specific [place] >= 1.030 (1.005-1.035) 06/06/18 09:23 Urine Protein 100 mg/dL (<30 mg/dL) H 06/06/18 09:23 Urine Glucose (UA) Negative mg/dL (NEGATIVE) 06/06/18 09:23 Urine Ketones Negative mg/dL (NEGATIVE) 06/06/18 09:23 Urine Blood Negative (NEGATIVE) 06/06/18 09:23 Urine Nitrate Negative (NEGATIVE) 06/06/18 09:23 Urine Bilirubin Negative (NEGATIVE) 06/06/18 09:23 Urine Urobilinogen 0.2 E.U./dL (<1 E.U./dL) 06/06/18 09:23 Ur Leukocyte Esterase Negative Thien/uL (NEGATIVE) 06/06/18 09:23 Urine RBC TEST NOT PERFORMED 06/06/18 09:23 Urine WBC 2 - 5 /hpf (0-6) 06/06/18 09:23 Ur Epithelial Cells 6 - 8 /hpf (0-5) H 06/06/18 09:23 Urine HCG, Qual Negative (NEGATIVE) 06/06/18 09:23 - Hospital Course Hospital Course: HPI at time of admission: "52 year old female with past medical history of COPD, Emphysema, Osteoporosis, and Hypothyroidism presents to the hospital for 2 days of shortness of breath. Patient states she was switching from her Spiriva inhaler to Trelegy days ago, but did not want to start the other inhaler right away. During this time, patient developed worsening dyspnea, along with productive cough. Patient admits to minimal mucous production, although she feels it in her lungs. Patient used proair inhaler for her for her symptoms but it did not help. Patient states she is compliant with medications. Patient last saw her PMD and registered respiratory technician 2 months ago. Denies chest pain, nausea, vomiting, diarrhea, fever, chills, dysuria, numbness, tingling." Hospital Course: Pertinent imaging: EKG 06/06: Sinus tachycardia at 126 bpm, no acute St-t wave changes CXR 06/06: no active disease Pt was admitted for management and treatment of COPD exacerbation. Was placed on Xopenex, Solumedrol, Pulmicort/Brovana, Zithromax for management of symptoms. Pulm was consulted (Dr. Jimenez) for assistance with management. Of note pt desaturated to 87% while ambulating with PT, thus requiring home O2 on discharge. Pt was set up to have home O2 on discharge with case management. Pt was continued on Synthroid home med for Hypothyroidism. TSH was low during admission. Pt was instructed to have repeat TSH with PMD after discharge. Pt was discharged to home in stable condition on 06/08/18. Instructed to f/u with PMD Dr. Saenz within 3-5 days of hospital d/c. Also instructed to f/u with Pulm (Dr. Sheppard) within 3-5 days of hospital d/c. Was given scripts for Zithromax to complete for additional 3 days of therapy, Pr ednisone for next 5 days, Robitussin prn for symptoms, and Pulmicort. Instructed to resume home meds as prescribed also. Was instructed to d/c Spiriva due to interaction with her other medications. Discharge Exam - Head Exam Head Exam: ATRAUMATIC, NORMOCEPHALIC - Eye Exam Eye Exam: EOMI, Normal appearance, PERRL - ENT Exam ENT Exam: Mucous Membranes Moist - Respiratory Exam Respiratory Exam: Clear to PA & Lateral, Wheezes, NORMAL BREATHING PATTERN, UNREMARKABLE. absent: Rales, Rhonchi - GI/Abdominal Exam GI & Abdominal Exam: Normal Bowel Sounds, Soft, Unremarkable. absent: Distended, Organomegaly, Tenderness - Extremities Exam Extremities exam: full ROM, normal capillary refill, normal inspection, pedal pulses present - Neurological Exam Neurological exam: Alert, CN II-XII Intact, Normal Gait, Oriented x3, Reflexes Normal - Psychiatric Exam Psychiatric exam: Normal Affect, Normal Mood - Skin Skin Exam: Dry, Intact, Normal Color, Warm Discharge Plan - Discharge Medications Prescriptions: Azithromycin [Zithromax] 250 mg PO DAILY #3 tab Budesonide [Pulmicort Respules] 0.25 mg IH [id number] #1 nebu guaiFENesin [Robitussin] 100 mg PO Q4H PRN #30 udc PRN Reason: Cough predniSONE [Prednisone] 10 mg PO DAILY #5 tab - Follow Up Plan Condition: FAIR Disposition: HOME/ ROUTINE Instructions: Smoking: Not Just Harmful to Your Lungs and Heart, Oxygen Therapy, Adult (DC), Exacerbation of COPD (DC) Additional Instructions: Please follow-up with your Primary Medical Doctor, Dr Saenz, within 3-5 days so he/she may monitor your course. Please follow-up with your Optoelectronic Technician, Dr Sheppard, within 7 days so he/she may monitor resolution of your symptoms. Your registered respiratory technician may make adjustments to your COPD medications. Please REPEAT YOUR THYROID STUDIES WITH DR. SAENZ. You will be discharged with the following medications, please take them as instructed: 1. Azithromycin 250mg 1 tablet once a day for 3 days 2. Prednisone 10mg 1 tablet once a day for 5 days 3. Robitussin 100mg every 4 hours only when needed for cough 4. Budesonide (pulmicort) 0.25mg IH NEB every 12 hours Please continue your other home medications, these include: 1. Synthroid 75mcg once a day upon waking in the morning 2. Boniva 150mg once a week 3. Trelegy Ellipta 1 inhalation once a day (this is the most important medication to control your COPD) 4. Ventolin 2puff NEB every 4 hours only when needed for shortness of breath Please DISCONTINUE the following medications as it is already contained in your Trelegy Ellipta medications 1. Spiriva 1 cap NEB once a day You will need home oxygen it will be sent to your home once approved by suad dawkins. You will leave with oxygen today. If symptoms return, please go to your nearest emergency department. Referrals: Leonard Sheppard MD [Staff Provider] - Honey Saenz MD [Primary Care Provider] -
[2018-06-08 16:33] VITALS: BP 125/77; PULSE 115; O2SAT 96
== END 2018-06-08 18:44 | disposition home or self-care (01) | DRG 192 ==
LOC: ED 08:10 → ERH 09:30 → 3RNO 10:09
PROVIDERS: ADMIT Internal Medicine; ATTEND Internal Medicine
PROC: 3E0F7GC Introduction of Other Therapeutic Substance into Respiratory Tract, Via Natural or Artificial Opening (ICD-10-PCS; principal; 2018-06-06)
DX: J44.1 Chronic obstructive pulmonary disease with (acute) exacerbation (principal); E03.9 Hypothyroidism, unspecified; M81.0 Age-related osteoporosis without current pathological fracture; R09.02 Hypoxemia; Z87.891 Personal history of nicotine dependence; Z99.81 Dependence on supplemental oxygen; Z91.14 Patient's other noncompliance with medication regimen